=== PATIENT | male | born 1960 | race Caucasian/White ===

== ENCOUNTER 2017-07-03 12:11 | Emergency (ER) | payer OTHER ==
[2017-07-03 14:33] LABS: BASOPHILS 0.3 % (0-2); EOSINOPHILS 0.7 % (0-7); HEMATOCRIT 50.5 % (42.0-54.0); HEMOGLOBIN 18.6 g/dL (13.5-17.5); IMMATURE GRANULOCYTES 0.2 % (0-5); LYMPHOCYTES 29.9 % (15-50); MCH 33.2 pg (26.0-34.0); MCHC 36.8 g/dL (31.0-37.0); MEAN PLATELET VOLUME 9.6 fL (7.4-10.4); NEUTROPHILS 58.9 % (40-80); PLATELET COUNT 192 10x3/uL (130-400); RBC 5.61 10x6/uL (4.20-6.10); RDW 12.8 % (11.5-14.5); WBC 9.8 10x3/uL (4.8-10.8)
[2017-07-03 14:59] LABS: COLOR ORANGE (YELLOW)
[2017-07-03 15:00] LABS: APPEARANCE CLEAR (CLEAR); BILIRUBIN NEGATIVE (NEGATIVE); GLUCOSE NEGATIVE (NEGATIVE); KETONE SMALL mg/dL (NEGATIVE); LEUKOCYTE ESTERASE NEGATIVE (NEGATIVE); NITRITE NEGATIVE (NEGATIVE); PROTEIN NEGATIVE (NEGATIVE); SPECIFIC GRAVITY 1.015 (1.005-1.020); UROBILINOGEN NORMAL (NORMAL)
[2017-07-03 15:24] LABS: INR 0.96 (0.85-1.17); PROTIME 12.6 SECONDS (11.6-15.0)
[2017-07-03 15:32] LABS: ALBUMIN 4.4 g/dL (3.4-5.0); ALKALINE PHOSPHATASE 74 U/L (46-116); ALT (SGPT) 32 U/L (10-68); BILIRUBIN - TOTAL 1.07 mg/dL (0.2-1.3); CALC OSMOLALITY 272 mosm/kg (275-300); CALCIUM 9.6 mg/dL (8.5-10.1); CHLORIDE - SERUM 95 mmol/L (98-107); GLUCOSE 96 mg/dL (74-106); POTASSIUM - SERUM 3.5 mmol/L (3.5-5.1); PROTEIN - SERUM 7.6 g/dL (6.4-8.2); SODIUM 137 mmol/L (136-145); UREA NITROGEN 9 mg/dL (7-18); eGFR NON AFRICAN AMERICAN 82 mL/min (90-120)
[2017-07-03 15:41] LABS: AMYLASE - SERUM 35 U/L (25-115); CREATINE KINASE 93 UL (21-232); LIPASE 117 U/L (73-393); PRO BNP 27 pg/mL (0-125)
[2017-07-03 15:44] LABS: TROPONIN-I < 0.017 ng/mL (0.000-0.060)
== END 2017-07-03 17:50 | disposition home or self-care (01) ==
LOC: D.ER 12:11
PROVIDERS: Nurse Practitioner Family
DX: R11.0 Nausea (principal); R53.1 Weakness; R06.02 Shortness of breath; I10 Essential (primary) hypertension; R53.83 Other fatigue; I44.4 Left anterior fascicular block; R94.31 Abnormal electrocardiogram [ECG] [EKG]